=== PATIENT | male | born 1995 ===

== ENCOUNTER 2017-06-05 22:52 | Emergency (ER) | payer SELFPAY ==
[2017-06-05 23:06] VITALS: BP 157/93; PULSE 79; RESP 18; TEMP 97.2; O2SAT 99
[2017-06-05 23:50] LABS: BASO % 0.3 % (0.0-2.0); EOS # 0.2 K/uL (0.0-0.7); EOS % 1.6 % (0.0-4.0); HEMATOCRIT 46.9 % (35.0-51.0); LYMPH # 4.4 K/uL (1.0-4.3); LYMPH % 41.4 % (20.0-40.0); MEAN CELL VOLUME 87.9 fl (80.0-94.0); MEAN CORPUSCULAR HEMOGLOBIN 29.9 pg (27.0-31.0); MEAN PLATELET VOLUME 8.2 fl (7.2-11.7); MONO # 1.2 K/uL (0.0-0.8); MONO % 11.1 % (0.0-10.0); NEUT # 4.8 K/uL (1.8-7.0); NEUT % 45.6 % (50.0-75.0); NRBC % 0.2 % (0.0-0.0); WHITE BLOOD COUNT 10.6 K/uL (4.8-10.8)
[2017-06-05 23:57] LABS: RBC URINE 14 /hpf (0-3); URINE BILIRUBIN NEGATIVE (NEGATIVE); URINE BLOOD MODERATE (NEGATIVE); URINE COLOR YELLOW (YELLOW); URINE GLUCOSE (UA) NEG (Normal); URINE KETONE NEGATIVE (NEGATIVE); URINE LEUKOCYTE ESTERASE NEG Leu/uL (Negative); URINE PROTEIN 30 mg/dL (NEGATIVE); WBC URINE 2 /hpf (0-5)
[2017-06-05 23:59] LABS: ALB/GLOB RATIO 1.4 (1.0-2.1); ALKALINE PHOSPHATASE 99 U/L (38-126); ALT/SGPT 33 U/L (21-72); AST/SGOT 26 U/L (17-59); BILIRUBIN,TOTAL 0.5 mg/dl (0.2-1.3); BLOOD UREA NITROGEN 11 mg/dl (9-20); CALCIUM 8.6 mg/dL (8.4-10.2); CARBON DIOXIDE 24 mmol/L (22-30); CHLORIDE 105 mmol/L (98-107); GFR AFRICAN-AMERICAN > 60; GLUCOSE,RANDOM 112 mg/dL (75-110); POTASSIUM 3.8 MMOL/L (3.6-5.0); SODIUM 142 mmol/l (132-148); TOTAL PROTEIN 8.2 G/DL (6.3-8.2)
[2017-06-06] MEDS ORDERED: Sodium Chloride 0.9% 1,000 ML IV STA (00:26)
[2017-06-06] MEDS ORDERED: HYDROmorphone 0.5 mg/0.5 ml ISec IVP STA (00:26)
[2017-06-06] MEDS ORDERED: HYDROmorphone 0.5 mg/0.5 ml ISec ONE (00:35)
--- NOTE | 2017-06-06 00:57 | ED PDOC ---
HPI: Abdomen Time Seen by Provider: 06/05/17 23:05 Chief Complaint (Nursing): Abdominal Pain Chief Complaint (Provider): Abdominal Pain History Per: Patient History/Exam Limitations: no limitations Onset/Duration Of Symptoms: Mins (x30) Current Symptoms Are (Timing): Still Present Location Of Pain/Discomfort: RLQ Associated Symptoms: denies: Nausea, Vomiting Additional Complaint(s): 22 year old male presents to ED with complaints of RLQ pain x30 minutes and has no past medical history. Patient notes that pain started while at rest and confirms that he had experienced a similar pain twice in the last week. States that the pain earlier this week was brief and therefore did not have it evaluated. Describes this episode of pain as sharp, stabbing, and rates it a 10/ 10 in intensity. Denies radiation of pain to the back or testicles. (-) nausea or vomiting, (+) urinary urgency. PCP: None Past Medical History Reviewed: Historical Data, Nursing Documentation, Vital Signs Vital Signs: Last Vital Signs Temp 97.2 F L 06/05/17 23:03 Pulse 79 06/05/17 23:03 Resp 18 06/05/17 23:03 BP 157/93 H 06/05/17 23:03 Pulse Ox 99 06/06/17 01:01 - Medical History PMH: No Chronic Diseases - Surgical History Surgical History: No Surg Hx - Family History Family History: States: No Known Family Hx - Home Medications Home Medications: Ambulatory Orders Medication Instructions Recorded Tamsulosin [Flomax] 0.4 mg PO DAILY #10 cap 06/06/17 oxyCODONE/Acetaminophen [Percocet 1 ea PO Q6 PRN #12 tab 06/06/17 5/325 mg Tab] - Allergies Allergies/Adverse Reactions: Allergies Allergy/AdvReac Type Severity Reaction Status Date / Time No Known Allergies Allergy Verified 06/05/17 23:03 Review of Systems ROS Statement: Except As Marked, All Systems Reviewed And Found Negative Gastrointestinal: Positive for: Abdominal Pain (RLQ pain). Negative for: Nausea , Vomiting Genitourinary Male: Positive for: Other ((+) urinary urgency). Negative for: Scrotal Pain Musculoskeletal: Negative for: Back Pain Physical Exam - Reviewed Nursing Documentation Reviewed: Yes Vital Signs Reviewed: Yes - Physical Exam Appears: Positive for: Non-toxic, Uncomfortable Skin: Positive for: Normal Color, Warm, Dry ENT: Positive for: Normal ENT Inspection Neck: Positive for: Normal Cardiovascular/Chest: Positive for: Regular Rate, Rhythm. Negative for: Murmur Respiratory: Positive for: Normal Breath Sounds. Negative for: Respiratory Distress Gastrointestinal/Abdominal: Positive for: Soft. Negative for: Tenderness Back: Positive for: Normal Inspection Extremity: Positive for: Normal ROM. Negative for: Deformity Neurologic/Psych: Positive for: Alert, Oriented - Laboratory Results Result Diagrams: 06/05/17 23:46 06/05/17 23:46 - ECG O2 Sat by Pulse Oximetry: 99 (RA) Pulse Ox Interpretation: Normal Medical Decision Making Medical Decision Makin Initial impression: clinical renal colic Initial plan: * CTA A/P * Labs * UDip * Toradol 30mg IVP * UA * Re-eval 2345 CT FINDINGS: Lower thorax: The bilateral lung bases are clear. ABDOMEN: Liver: The liver is enlarged and demonstrates diffuse fatty infiltration. Gallbladder and bile ducts: No acute finding. No calcified stones. No intra-extrahepatic biliary ductal dilation. Pancreas: Limited evaluation secondary to the lack of intravenous contrast. Spleen: No acute findings. Adrenals: No acute findings. Kidneys and ureters: Mild right-sided hydroureteronephrosis extending to the distal right ureter (at the level of the ureterovesicular junction) where a 6 mm stone is identified. PELVIS: Bladder: No acute findings. Reproductive: No acute findings. Appendix: The appendix is of normal caliber (series 3, image 94; series 601, image 38). ABDOMEN and PELVIS: Stomach and bowel: No acute findings. Peritoneum: No acute findings. Lymph nodes: Limited evaluation without intravenous contrast. Vasculature: Unremarkable. Bones: No acute fracture. IMPRESSION: Mild right-sided hydroureteronephrosis secondary to a 6 mm stone in the distal right ureter. 0026 * Dilaudid 0.5mg IVP * Flomax 0.8mg PO * NS IV * Re-eval 0200 Upon re-evaluation, patient reports marked improvement in symptoms and is stable for discharge home. Patient was provided a urinary strainer and a referral to urologist. Dx: right-sided ureteral calculus Condition: improved Scribe Attestation: Documented by Negrita Elizondo acting as a scribe for Baljeet Macario MD. Scribe Attestation: All medical record entries made by the Scribe were at my direction and personally dictated by me. I have reviewed the chart and agree that the record accurately reflects my personal performance of the history, physical exam, medical decision making, and the department course for this patient. I have also personally directed, reviewed, and agree with the discharge instructions and disposition. Disposition - Clinical Impression Clinical Impression: Ureteral calculus - Disposition Referrals: Camden Johnson Jr., MD [Staff Provider] - Disposition: Routine/Home Disposition Time: 02:00 Condition: IMPROVED Prescriptions: oxyCODONE/Acetaminophen [Percocet 5/325 mg Tab] 1 ea PO Q6 PRN #12 tab PRN Reason: abdominal/flank pain Tamsulosin [Flomax] 0.4 mg PO DAILY #10 cap Instructions: Ureteral Stones (ED) Forms: [facility] (Bengali) Print Language: CYMRO
--- NOTE | 2017-06-06 08:35 | CT ---
PROCEDURE: CT Abdomen and Pelvis without intravenous contrast HISTORY: renal colic COMPARISON: None. TECHNIQUE: CT scan of the abdomen and pelvis was performed without administration of intravenous contrast. Oral contrast was not administered. Coronal and sagittal reformatted images were obtained. Radiation dose: Total exam DLP = 671.46 mGy-cm. This CT exam was performed using one or more of the following dose reduction techniques: Automated exposure control, adjustment of the mA and/or kV according to patient size, and/or use of iterative reconstruction technique. FINDINGS: LOWER THORAX: The lung bases are clear. LIVER: The liver is normal in size. No gross lesion or ductal dilatation. GALLBLADDER AND BILE DUCTS: No calcified gallstones. PANCREAS: Normal in size. No gross lesion or ductal dilatation. SPLEEN: Normal in size. ADRENALS: No discrete nodule. KIDNEYS AND URETERS: There is a 3 mm obstructing stone in the right distal ureteral proximal to the UV junction with resultant diffuse dilatation of the right ureteral, mild hydronephrosis, mild edema and enlargement of the right kidney and minimal perinephric fat stranding. The left kidney is normal in size without hydronephrosis or nephrolithiasis. VASCULATURE: No aortic aneurysm. BOWEL: The small bowel loops are normal in caliber. The colon is unremarkable. APPENDIX: Normal appendix. PERITONEUM: No free fluid. No free air. LYMPH NODES: There are prominent mesenteric lymph nodes in the right mid abdomen, likely reactive. . BLADDER: Grossly normal in appearance. REPRODUCTIVE: Unremarkable. BONES: No acute fracture. Within normal limits for the patient's age. OTHER FINDINGS: None. IMPRESSION: Mild right obstructive uropathy resulting from a 3 mm stone in the distal ureteral proximal to the UV junction. A preliminary report was provided by [employer].
== END 2017-06-06 02:09 | disposition home or self-care (01) ==
LOC: H.ER 22:52
DX: N13.2 Hydronephrosis with renal and ureteral calculous obstruction (principal); K76.0 Fatty (change of) liver, not elsewhere classified
CPT/HCPCS: 74176; 80053; 81003; 85025; 96361; 96374; 96375; 99282; J1170; J1885; J7040